=== PATIENT | male | born 1985 | race Caucasian/White ===

== ENCOUNTER 2017-06-12 15:23 | Outpatient (CLI) | payer OTHER | END 2017-06-12 15:24 | disposition home or self-care (01) | LOC: BICRAD 15:23 | PROVIDERS: ATTEND Family Medicine | DX: M54.9 Dorsalgia, unspecified (principal); M48.07 Spinal stenosis, lumbosacral region; M43.17 Spondylolisthesis, lumbosacral region | CPT/HCPCS: 72100 ==

== ENCOUNTER 2017-08-01 09:44 | Outpatient (CLI) | payer OTHER | END 2017-08-01 09:45 | disposition home or self-care (01) | LOC: BICRAD 09:44 | PROVIDERS: ATTEND Family Medicine | DX: M79.641 Pain in right hand (principal); S60.551A Superficial foreign body of right hand, initial encounter ==

== ENCOUNTER 2017-08-12 10:27 | Outpatient (CLI) | payer OTHER | END 2017-08-12 10:28 | disposition home or self-care (01) | LOC: BICCT 10:27 | PROVIDERS: ATTEND Psychiatry & Neurology Neurology | DX: M43.17 Spondylolisthesis, lumbosacral region (principal); M99.83 Other biomechanical lesions of lumbar region | CPT/HCPCS: 72131 ==